=== PATIENT | female | born 1945 | race African-American/Black ===

== ENCOUNTER 2017-05-30 11:48 | Emergency (ER) | payer OTHER, MEDICARE, BC ==
[~2017-05-30 11:48] MED LIST: ALPR0.5T99 PO; ASPI81 PO; ATEN1TAB73 PO; CIPR500T4 PO; ESTR0.5T PO; FERR324T4 PO; GLUCTAB OR; HYDR-2768 PO; LEXA20TA PO; LISI-366 PO; NORV2.5T11 PO; NOVOLOGP2 SQ; OMEP10CA37 PO; PRAV40TA PO; QUET1TAB67 PO; TEMA15 PO; VITA500015 PO
[2017-05-30 11:52] VITALS: BP 157/74; PULSE 71; RESP 14; TEMP 97.6; O2SAT 98
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
== END 2017-05-30 13:30 | disposition home or self-care (01) ==
LOC: NEPK 11:48
DX: S80.02XA Contusion of left knee, initial encounter (principal); M54.5 Low back pain; S16.1XXA Strain of muscle, fascia and tendon at neck level, initial encounter; M51.36 Other intervertebral disc degeneration, lumbar region; M41.9 Scoliosis, unspecified; E78.00 Pure hypercholesterolemia, unspecified; E11.9 Type 2 diabetes mellitus without complications; I10 Essential (primary) hypertension; V49.40XA Driver injured in collision with unspecified motor vehicles in traffic accident, initial encounter
CPT/HCPCS: 72100; 99284